=== PATIENT | male | born 1950 | race Caucasian/White ===

== ENCOUNTER 2020-04-10 11:48 | Day surgery (SDC) | payer MEDICARE, OTHER ==
[~2020-04-10] VITALS: Ht 172.7 cm; Wt 90.9 kg
[2020-04-10] MEDS ORDERED: PROPOFOL 1% 20 ML VIAL IVP ONE (12:00)
[2020-04-10] MEDS ORDERED: GLYCOPYRROLATE 0.2 MG/ML VIAL IM ONE (12:00)
[2020-04-10] MEDS ORDERED: SODIUM CHLORIDE 0.9% 1,000 ML ONE (12:09)
[2020-04-10] MEDS ORDERED: SODIUM CHLORIDE 0.9% 1,000 ML IV ONE (12:30)
[2020-04-10 12:50] LABS: GLUCOMETER DEV NAME(LOC) SDS.; GLUCOSE,POINT OF CARE 127 MG/DL (70-110)
[2020-04-10] MEDS ORDERED: CARV6 PO (14:44)
[2020-04-10] MEDS ORDERED: FURO80 PO (14:44)
[2020-04-10] MEDS ORDERED: INSNOV SQ (14:44)
[2020-04-10] MEDS ORDERED: OXYGEN THERAPY IH SCH (20:00)
== END 2020-04-10 15:35 | disposition home or self-care (01) ==
LOC: SURGERY 11:48
PROVIDERS: ATTEND Specialist
DX: K22.70 Barrett's esophagus without dysplasia (principal); K31.7 Polyp of stomach and duodenum; N18.9 Chronic kidney disease, unspecified; D50.9 Iron deficiency anemia, unspecified; K29.50 Unspecified chronic gastritis without bleeding; B96.89 Other specified bacterial agents as the cause of diseases classified elsewhere; I12.9 Hypertensive chronic kidney disease with stage 1 through stage 4 chronic kidney disease, or unspecified chronic kidney disease; E11.22 Type 2 diabetes mellitus with diabetic chronic kidney disease; E66.09 Other obesity due to excess calories; M19.90 Unspecified osteoarthritis, unspecified site; Z79.4 Long term (current) use of insulin; Z79.82 Long term (current) use of aspirin; Z79.899 Other long term (current) drug therapy; Z83.3 Family history of diabetes mellitus; Z86.73 Personal history of transient ischemic attack (TIA), and cerebral infarction without residual deficits; Z11.59 Encounter for screening for other viral diseases
CPT/HCPCS: 43239; 43245; 82962; 87635; 88305; 88312; 88313; 93005; C1769; J2704; J3490; J7030